=== PATIENT | male | born 2000 ===

== ENCOUNTER 2018-01-13 03:47 | Emergency (ER) | payer SELFPAY ==
[2018-01-13 04:04] VITALS: TEMP 98.3
--- NOTE | 2018-01-13 04:29 | C.PDOC ---
History Of Present Illness 17 year old male presents to the ER with a complaint of right facial pain, s/p trip and fall. Patient states he tripped while walking and hit the wall with the right side of his face [employer]. Also notes he tried to break his landing with his right hand injuring that. Pt denies altercation. Denies LOC, ETOH use, or drug use. Denies diplopia, headache, vomiting, visual changes, and changes in sensation. No other injury. - HPI Time Seen by Provider: 01/13/18 04:03 Chief Complaint (Nursing): Trauma History Per: Patient History/Exam Limitations: no limitations Onset/Duration Of Symptoms: Hrs Injury Occurred (Timing): Just Before Arrival Location Of Injury: Right: Face Recent travel outside of the [place]: No - Fall Fall:Prior To Injury: Tripped Past Medical History Reviewed: Historical Data, Nursing Documentation, Vital Signs Vital Signs: Last Vital Signs Temp 98.3 F 01/13/18 04:00 Pulse 78 01/13/18 05:28 Resp 18 01/13/18 05:28 BP 116/75 01/13/18 05:28 Pulse Ox 98 01/13/18 05:54 Family History: States: Unknown Family Hx - Social History Hx Alcohol Use: No Hx Substance Use: No - Immunization History Hx Tetanus Toxoid Vaccination: No Hx Influenza Vaccination: No Hx Pneumococcal Vaccination: No Review Of Systems Constitutional: Negative for: Fever, Chills ENT: Positive for: Other (Right facial pain) Gastrointestinal: Negative for: Nausea, Vomiting Neurological: Negative for: Headache, Other (LOC) Physical Exam - Physical Exam Appears: Well, Non-toxic, No Acute Distress Skin: Warm, Dry Head: Normacephalic, Tenderness, Swelling ((+) right periorbital swelling and tenderness), Laceration (1.5cm to right eyebrow) Eye(s): bilateral: PERRL, EOMI, right: Other (Right periorbital swelling with subconjunctival hemorrhage, no pain with EOMI.) Ear(s): Bilateral: Normal Nose: No Epistaxis, Tenderness (w/ swelling), No Septal Hematoma Oral Mucosa: Moist, Other (Superficial abrasion to right upper inner mucosa) Tongue: Normal Appearing, No Laceration Lips: Normal Appearing Teeth: Normal Dentition, No Tender To Palpation, No Loose Gingiva: Normal Appearing Throat: Normal, No Erythema, No Exudate Neck: Normal, Normal ROM, No Midline Cervical Tenderness, No Paracervical Tenderness, Supple Chest: Symmetrical Cardiovascular: Rhythm Regular Respiratory: Normal Breath Sounds Extremity: Normal ROM, Tenderness, Capillary Refill (<2 seconds), Other (Right swelling and tenderness to 4th MCP) Pulses: Left Radial: Normal, Right Radial: Normal Neurological/Psych: Oriented x3, Normal Speech, Normal Motor, Normal Sensation Gait: Steady ED Course And Treatment O2 Sat by Pulse Oximetry: 98 (Room air) Pulse Ox Interpretation: Normal - CT Scan/US CT Head Other Rad Studies (CT/US): Read By Radiologist, Radiology Report Reviewed CT/US Interpretation: EXAM: CT Head Without Intravenous Contrast. CLINICAL HISTORY: 17 years old, male; Pain; Headache and other: Trauma. TECHNIQUE: Axial computed tomography images of the head/brain without intravenous contrast. All CT scans at. this facility use one or more dose reduction techniques, viz.: automated exposure control; ma/kV. adjustment per patient size (including targeted exams where dose is matched to indication; i.e. head); . or iterative reconstruction technique. Coronal and sagittal reformatted images were created and reviewed. COMPARISON: No relevant prior studies available. FINDINGS: Brain: No intracranial hemorrhage. No mass. No edema. Ventricles: No hydrocephalus. Bones/joints: No calvarial fracture. Mastoid air cells: No mastoid effusion. IMPRESSION: 1. No intracranial hemorrhage. 2. See facial bone CT report for additional details. CT Maxillofacial Other Rad Studies (CT/US): Read By Radiologist, Radiology Report Reviewed CT/US Interpretation: EXAM: CT Maxillofacial Without Intravenous Contrast. CLINICAL HISTORY: 17 years old, male; Pain; Eye pain and face pain and jaw pain ; Bilateral; Additional info: Trauma. TECHNIQUE: Axial computed tomography images of the face without intravenous contrast. All CT scans at this. facility use one or more dose reduction techniques, viz.: automated exposure control; ma/kV. adjustment per patient size (including targeted exams where dose is matched to indication; i.e. head);. or iterative reconstruction technique. Coronal and sagittal reformatted images were created and reviewed. COMPARISON: No relevant prior studies available. FINDINGS: Bones/joints: Depressed fracture medial wall of right orbit. Soft tissues: Mild facial soft tissue swelling. Orbits: Minimal air within right orbit. Sinuses: Scattered moderate mucosal thickening of ethmoid sinuses. Scattered minimal to mild. mucosal thickening of remaining sinuses. No air-fluid levels. IMPRESSION: 1. Facial fracture as above. 2. Incidental/non-acute findings are described above. Progress Note: Right hand x-ray, CT head, and CT maxillofacial ordered. Patient refuses tetanus vaccination. Discussed wound care and wound check in 2 days. Discussed importance of OMF follow up tomorrow and signs of concern. Case discussed with Dr Burger who evaluated work up and agreed upon plan and discharge. Laceration - Laceration Repair Right eyebrow Wound Length (In cm): 1.5 Description Of Wound: Linear Wound Cleansed With: Betadine, Sterile Saline Anesthesia: Lidocaine 1% Wound Examination: Irrigated With Saline, No FB With Wound Exploration, No Tendon Injury With Wound Exploration Wound Closure: Suture (x2) Suture Technique And Material Used: Nylon (6-0) Wound Complexity: Simple Disposition - Disposition Referrals: [facility] [Outside] Yaneth Zepeda DMD [Staff Provider] - Disposition: HOME/ ROUTINE Disposition Time: 05:53 Condition: STABLE Additional Instructions: Suture removal in 5-7 days. You have a fracture of your eye socket, it is very important that you follow up with a specialist in 1-2 days. Return to ER if symptoms persist or worsen. Do not blow your nose. 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 - Scribe Statement The provider has reviewed the documentation as recorded by the Scribe Guerrero Bañuelos All medical record entries made by the Scribe were at my direction and personally dictated by me. I have reviewed the chart and agree that the record accurately reflects my personal performance of the history, physical exam, medical decision making, and the department course for this patient. I have also personally directed, reviewed, and agree with the discharge instructions and disposition.
[2018-01-13 05:29] VITALS: BP 116/75; PULSE 78; RESP 18
[2018-01-13 05:34] VITALS: O2SAT 98
[2018-01-13] MEDS ORDERED: Bacitracin Ointment 30 GM TUBE TOP STA (05:34)
[2018-01-13] MEDS ORDERED: Lidocaine 2% Inj (20ml) INFIL ONE (05:35)
[2018-01-13] MEDS ORDERED: Bacitracin 500 Units/gm Oint Foilpak UD TOP ONE (05:35)
--- NOTE | 2018-01-13 05:39 | CT ---
EXAM: CT Head Without Intravenous Contrast CLINICAL HISTORY: 17 years old, male; Pain; Headache and other: Trauma TECHNIQUE: Axial computed tomography images of the head/brain without intravenous contrast. All CT scans at this facility use one or more dose reduction techniques, viz.: automated exposure control; ma/kV adjustment per patient size (including targeted exams where dose is matched to indication; i.e. head); or iterative reconstruction technique. Coronal and sagittal reformatted images were created and reviewed. COMPARISON: No relevant prior studies available. FINDINGS: Brain: No intracranial hemorrhage. No mass. No edema. Ventricles: No hydrocephalus. Bones/joints: No calvarial fracture. Mastoid air cells: No mastoid effusion. IMPRESSION: 1. No intracranial hemorrhage. 2. See facial bone CT report for additional details.
--- NOTE | 2018-01-13 05:43 | CT ---
EXAM: CT Maxillofacial Without Intravenous Contrast CLINICAL HISTORY: 17 years old, male; Pain; Eye pain and face pain and jaw pain; Bilateral; Additional info: Trauma TECHNIQUE: Axial computed tomography images of the face without intravenous contrast. All CT scans at this facility use one or more dose reduction techniques, viz.: automated exposure control; ma/kV adjustment per patient size (including targeted exams where dose is matched to indication; i.e. head); or iterative reconstruction technique. Coronal and sagittal reformatted images were created and reviewed. COMPARISON: No relevant prior studies available. FINDINGS: Bones/joints: Depressed fracture medial wall of right orbit. Soft tissues: Mild facial soft tissue swelling. Orbits: Minimal air within right orbit Sinuses: Scattered moderate mucosal thickening of ethmoid sinuses. Scattered minimal to mild mucosal thickening of remaining sinuses. No air-fluid levels. IMPRESSION: 1. Facial fracture as above. 2. Incidental/non-acute findings are described above.
[2018-01-13] MEDS ORDERED: Bacitracin 500 Units/gm Oint Foilpak UD ONE (05:49)
--- NOTE | 2018-01-13 08:34 | RAD ---
PROCEDURE: Right Hand Radiographs. HISTORY: trauma COMPARISON: None. FINDINGS: BONES: There is no acute displaced fracture or bone destruction. Bone alignment is normal. Bone mineralization is normal. There is an old fracture deformity in the distal 5th metacarpal. JOINTS: Normal. SOFT TISSUES: Normal. OTHER FINDINGS: None. IMPRESSION: No acute fracture or dislocation.
== END 2018-01-13 06:00 | disposition home or self-care (01) ==
LOC: C.ER 03:47
DX: S02.81XA Fracture of other specified skull and facial bones, right side, initial encounter for closed fracture (principal); S60.221A Contusion of right hand, initial encounter; W01.198A Fall on same level from slipping, tripping and stumbling with subsequent striking against other object, initial encounter; Y92.9 Unspecified place or not applicable